=== PATIENT | female | born 1970 | race Caucasian/White ===

== ENCOUNTER → 2016-12-04 | Outpatient (CLI) | payer BC, OTHER ==
--- NOTE | 2016-12-05 08:50 | MM ---
Reason for exam: screening (asymptomatic). Last mammogram was performed 1 year and 1 month ago. History: Patient had first child at age 33. Family history of breast cancer in maternal aunt. Benign excisional biopsy of the right breast, 2007. Took hormonal contraceptives for 3 months beginning at age 37. Physical Findings: A clinical breast exam by your physician is recommended on an annual basis and results should be correlated with mammographic findings. MG 3D Screening Mammo W/Cad Bilateral CC and MLO view(s) were taken. Prior study comparison: November 17, 2015, bilateral MG 3d screening mammo w/cad. November 16, 2014, bilateral MG screening mammo w CAD. The breast tissue is heterogeneously dense. This may lower the sensitivity of mammography. There is no discrete abnormality. No significant changes when compared with prior studies. ASSESSMENT: Negative, BI-RAD 1 RECOMMENDATION: Routine screening mammogram of both breasts in 1 year.
== END | disposition home or self-care (01) ==
LOC: RADMAMWWP 14:26
PROVIDERS: ATTEND Obstetrics & Gynecology
DX: Z12.31 Encounter for screening mammogram for malignant neoplasm of breast (principal); Z80.3 Family history of malignant neoplasm of breast
CPT/HCPCS: 77063; G0202

== ENCOUNTER → 2016-12-19 | Outpatient (CLI) | payer OTHER | LOC: LABWHC1 06:42 | PROVIDERS: ATTEND Obstetrics & Gynecology | DX: E03.9 Hypothyroidism, unspecified (principal); E78.5 Hyperlipidemia, unspecified | CPT/HCPCS: 36415; 80061; 82947; 84439; 84443; 84479 ==

== ENCOUNTER → 2018-03-04 | Outpatient (CLI) | payer BC, OTHER ==
--- NOTE | 2018-03-05 14:11 | MM ---
Reason for exam: screening (asymptomatic). Last mammogram was performed 1 year and 3 months ago. History: Patient had first child at age 33. Family history of breast cancer in maternal aunt. Benign excisional biopsy of the right breast, 2007. Took hormonal contraceptives for 3 months beginning at age 37. Physical Findings: A clinical breast exam by your physician is recommended on an annual basis and results should be correlated with mammographic findings. MG 3D Screening Mammo W/Cad Bilateral CC and MLO view(s) were taken. Prior study comparison: December 04, 2016, bilateral MG 3d screening mammo w/cad. November 17, 2015, bilateral MG 3d screening mammo w/cad. The breast tissue is heterogeneously dense. This may lower the sensitivity of mammography. There is no discrete abnormality. ASSESSMENT: Negative, BI-RAD 1 RECOMMENDATION: Routine screening mammogram of both breasts in 1 year.
== END | disposition home or self-care (01) ==
LOC: RADMAMWWP 14:14
PROVIDERS: ATTEND Obstetrics & Gynecology
DX: Z12.31 Encounter for screening mammogram for malignant neoplasm of breast (principal)
CPT/HCPCS: 77063; 77067

== ENCOUNTER → 2018-05-28 | Outpatient (CLI) | payer BC ==
[2018-05-28 07:43] LABS: HCT 38.7 % (34.0-46.0); HGB 12.8 gm/dL (11.4-16.0); MCH 31.6 pg (25.0-35.0); MCHC 33.2 g/dL (31.0-37.0); MCV 95.4 fL (80.0-100.0); Mean Platelet Volume 7.7; Platelet Count 255 k/uL (150-450); RBC 4.06 m/uL (3.80-5.40); RDW 12.8 % (11.5-15.5); WBC 5.7 k/uL (3.8-10.6)
[2018-05-28 08:19] LABS: T4, Free (Free Thyroxine) 0.79 ng/dL (0.78-2.19)
== END ==
LOC: LABWHC1 07:07
PROVIDERS: ATTEND Obstetrics & Gynecology
DX: Z13.220 Encounter for screening for lipoid disorders (principal); Z13.29 Encounter for screening for other suspected endocrine disorder
CPT/HCPCS: 36415; 80061; 82947; 84439; 84443; 84479; 85027

== ENCOUNTER → 2019-03-17 | Outpatient (CLI) | payer BC ==
--- NOTE | 2019-03-18 11:30 | MM ---
Reason for exam: screening (asymptomatic). Last mammogram was performed 1 year ago. History: Patient is postmenopausal and had first child at age 33. Family history of breast cancer in maternal aunt. Benign excisional biopsy of the right breast, 2007. Took hormonal contraceptives for 3 months beginning at age 37. Physical Findings: A clinical breast exam by your physician is recommended on an annual basis and results should be correlated with mammographic findings. MG 3D Screening Mammo W/Cad Bilateral CC and MLO view(s) were taken. Prior study comparison: March 04, 2018, bilateral MG 3d screening mammo w/cad. December 04, 2016, bilateral MG 3d screening mammo w/cad. The breast tissue is heterogeneously dense. This may lower the sensitivity of mammography. There is no discrete abnormality. ASSESSMENT: Negative, BI-RAD 1 RECOMMENDATION: Routine screening mammogram of both breasts in 1 year.
== END | disposition home or self-care (01) ==
LOC: RADMAMWWP 13:48
PROVIDERS: ATTEND Obstetrics & Gynecology
DX: Z12.31 Encounter for screening mammogram for malignant neoplasm of breast (principal); Z80.3 Family history of malignant neoplasm of breast
CPT/HCPCS: 77063; 77067

== ENCOUNTER → 2020-03-29 | Outpatient (CLI) | payer SELFPAY ==
--- NOTE | 2020-03-30 10:11 | MM ---
Reason for exam: screening (asymptomatic). Last mammogram was performed 1 year ago. History: Patient is postmenopausal and had first child at age 33. Family history of breast cancer in maternal aunt. Benign excisional biopsy of the right breast, 2007. Took hormonal contraceptives for 3 months beginning at age 37. Physical Findings: A clinical breast exam by your physician is recommended on an annual basis and results should be correlated with mammographic findings. MG 3D Screening Mammo W/Cad Bilateral CC and MLO view(s) were taken. Prior study comparison: March 17, 2019, bilateral MG 3d screening mammo w/cad. March 04, 2018, bilateral MG 3d screening mammo w/cad. The breast tissue is heterogeneously dense. This may lower the sensitivity of mammography. Benign appearing calcifications in the right breast. No significant changes when compared with prior studies. ASSESSMENT: Benign, BI-RAD 2 RECOMMENDATION: Routine screening mammogram of both breasts in 1 year.
== END | disposition home or self-care (01) ==
LOC: RADMAMWWP 12:13
PROVIDERS: ATTEND Obstetrics & Gynecology
DX: Z12.31 Encounter for screening mammogram for malignant neoplasm of breast (principal)
CPT/HCPCS: 77063; 77067

== ENCOUNTER → 2020-04-25 | Outpatient (CLI) | payer OTHER ==
[2020-04-25 15:53] LABS: HCT 43.6 % (34.0-46.0); HGB 14.1 gm/dL (11.4-16.0); MCH 31.7 pg (25.0-35.0); MCHC 32.2 g/dL (31.0-37.0); MCV 98.6 fL (80.0-100.0); Mean Platelet Volume 9.5; Platelet Count 278 k/uL (150-450); RBC 4.43 m/uL (3.80-5.40); WBC 6.6 k/uL (3.8-10.6)
[2020-04-25 23:53] LABS: African American GFR (CKD) 117.1 (60.0-200.0); Albumin 4.5 g/dL (3.80-4.90); Albumin/Globulin Ratio 1.88 (1.60-3.17); Anion Gap 10.6 mmol/L (4.00-12.00); BUN/Creat Ratio 12.86 Ratio (12.00-20.00); Calcium 9.7 mg/dL (8.7-10.3); Carbon Dioxide 24.4 mmol/L (21.6-31.8); Chol/HDL Ratio 2.98; Globulin 2.4 g/dL (1.6-3.3); Potassium 4.2 mmol/L (3.5-5.5); Total Bilirubin 0.5 mg/dL (0.2-1.2); Total Protein 6.9 g/dL (6.2-8.2)
== END | disposition home or self-care (01) ==
LOC: LABWHC1 14:14
PROVIDERS: ATTEND Obstetrics & Gynecology
DX: Z13.220 Encounter for screening for lipoid disorders (principal); Z13.29 Encounter for screening for other suspected endocrine disorder; R53.83 Other fatigue
CPT/HCPCS: 36415; 80053; 80061; 84439; 84443; 85027

== ENCOUNTER → 2020-05-19 | Outpatient (CLI) | payer SELFPAY ==
--- NOTE | 2020-05-20 07:53 | US ---
EXAMINATION TYPE: US thyroid st tissue head/neck DATE OF EXAM: 05/19/2020 COMPARISON: US 2016 CLINICAL HISTORY: E04.1 THYROID NODULE. Thyroid nodules, history of thyroid FNA GLAND SIZE: Right Lobe: 4.4 x 1.8 x 1.9 cm Overall Parenchyma: homogenous Left Lobe: 4.0 x 1.4 x 1.1 cm Overall Parenchyma: homogeneous Isthmus Thickness: 0.2 cm NODULES RIGHT: # of nodules measured on right: 3 1. 2.6 X 1.5 x 1.9 cm hypoechoic mixed nodule at the mid pole with well-defined margins. This nodul e is wider than tall and shows intranodular vascularity. Prior size: 2.2 x 1.3 x 1.6 cm 2. 0.8 X 0.4 x 0.6 cm hypoechoic mixed nodule at the mid upper pole with well-defined margins. This nodule is wider than tall and shows intranodular vascularity. Prior size: 0.7 x 0.4 x 0.6 cm 3. 0.6 X 0.4 x 0.9 cm hyperechoic solid nodule at the lower pole with well-defined margins. This nod ule is wider than tall and shows no intranodular vascularity. Prior size: no previous LEFT: # of nodules measured on left: 2 1. 0.7 X 0.6 x 0.5 cm hypoechoic solid nodule at the medial upper pole with well-defined margins. T his nodule is wider than tall and shows intranodular vascularity. Prior size: 0.7 x 0.5 x 0.7 cm 2. 0.5 X 0.4 x 0.5 cm hypoechoic mixed nodule at the lateral lower pole with well-defined margins. T his nodule is wider than tall and shows intranodular vascularity. Prior size: 1.1 x 0.6 x 0.5 cm ISTHMUS: # of nodules measured in the isthmus: 1 1. 1.3 X 0.5 x 1.2 cm hypoechoic solid nodule at the isthmus with well-defined margins. This nodule is wider than tall and shows intranodular vascularity. Prior size: 1.4 x 0.5 x 1.2 cm Bilateral neck scanned, no evidence of lymphadenopathy. IMPRESSION: Mildly suspicious dominant nodule right lobe of the gland, consider FNA, TR3.
== END | disposition home or self-care (01) ==
LOC: RADUSWWP 15:31
PROVIDERS: ATTEND Obstetrics & Gynecology
DX: E04.1 Nontoxic single thyroid nodule (principal)
CPT/HCPCS: 76536

== ENCOUNTER → 2020-06-13 | Outpatient (CLI) | payer OTHER ==
--- NOTE | 2020-06-13 11:59 | BD ---
EXAMINATION TYPE: Axial Bone Density DATE OF EXAM: 06/13/2020 COMPARISON: NONE CLINICAL HISTORY: Osteoporosis Height: 67 IN Weight: 190 LBS RISK FACTORS HISTORY OF: Family History of Osteoporosis: YES GRANDMOTHER (P) Active: YES Postmenopausal woman: AGE 44 MEDICATIONS: Additional Medications: NONE EXAM MEASUREMENTS: Bone mineral densitometry was performed using the [employer] System. Bone mineral density as measured about the Lumbar spine is: ----- L1-L4(G/cm2): 1.052 T Score Values are as follows: ----- L2: -1.3 ----- L3: -0.9 ----- L4: -0.8 ----- L1-L4: -1.1 Bone mineral density BASELINE Bone mineral density about the R hip (g/cm2): 0.946 Bone mineral density about the L hip (g/cm2): 0.939 T Score values are as follows: -----R Neck: -0.7 -----L Neck: -0.7 -----R Total: 0.1 -----L Total: 0.0 Bone mineral density BASELINE IMPRESSION: Osteopenia (T Score between -2.5 and -1). There is slightly increased risk of fracture and the patient may be considered for treatment. Re-Screen 2-5 years. NOTE: T-SCORE=SD OF THE YOUNG ADULT MEAN.
== END | disposition home or self-care (01) ==
LOC: RADBDWWP 07:18
PROVIDERS: ATTEND Obstetrics & Gynecology
DX: M85.80 Other specified disorders of bone density and structure, unspecified site (principal)
CPT/HCPCS: 77080

== ENCOUNTER → 2021-04-26 | Outpatient (CLI) | payer OTHER ==
[2021-04-26 15:19] LABS: HCT 44.6 % (37.2-46.3); MCH 31.3 pg (27.0-32.0); MCHC 31.4 g/dL (32.0-37.0); MCV 99.8 fL (80.0-97.0); Mean Platelet Volume 10.9 fL (9.5-12.2); Platelet Count 294 X 10*3/uL (140-440); RBC 4.47 X 10*6/uL (4.10-5.20); RDW 12.9 % (11.5-14.5); WBC 6.04 X 10*3/uL (4.50-10.00)
[2021-04-26 18:45] LABS: African American GFR (CKD) 98.9 (60.0-200.0); Albumin 4.6 g/dL (3.80-4.90); Albumin/Globulin Ratio 1.84 (1.60-3.17); Anion Gap 11.9 mmol/L (4.00-12.00); BUN/Creat Ratio 16.25 Ratio (12.00-20.00); Calcium 9.5 mg/dL (8.7-10.3); Carbon Dioxide 23.1 mmol/L (21.6-31.8); Chol/HDL Ratio 3.1; Globulin 2.5 g/dL (1.6-3.3); LDL Cholesterol,Calculated 98.6 mg/dL (0.0-131.0); Non-African American GFR(CKD) 85.4 (60.0-200.0); Potassium 4.6 mmol/L (3.5-5.5); Total Bilirubin 0.4 mg/dL (0.3-1.2); Total Protein 7.1 g/dL (6.2-8.2); VLDL Calculation 27.4 mg/dL (5.00-40.00)
== END | disposition home or self-care (01) ==
LOC: LABWHC1 06:58
PROVIDERS: ATTEND Obstetrics & Gynecology
DX: Z13.220 Encounter for screening for lipoid disorders (principal)
CPT/HCPCS: 36415; 80053; 80061; 85027

== ENCOUNTER → 2021-05-31 | Outpatient (CLI) | payer OTHER ==
--- NOTE | 2021-06-01 12:33 | MM ---
Reason for exam: screening (asymptomatic). Last mammogram was performed 1 year and 2 months ago. History: Patient is postmenopausal and had first child at age 33. Family history of breast cancer in maternal aunt. Benign excisional biopsy of the right breast, 2007. Took hormonal contraceptives for 3 months beginning at age 37. Physical Findings: A clinical breast exam by your physician is recommended on an annual basis and results should be correlated with mammographic findings. MG 3D Screening Mammo W/Cad Bilateral CC and MLO view(s) were taken. Prior study comparison: March 29, 2020, bilateral MG 3d screening mammo w/cad. March 17, 2019, bilateral MG 3d screening mammo w/cad. March 04, 2018, bilateral MG 3d screening mammo w/cad. The breast tissue is heterogeneously dense. This may lower the sensitivity of mammography. Finding: There is an intermediate concern, suspicious 6 mm high density, oval mass in the subareolar position of the left breast. New finding since March 29, 2020, March 17, 2019, and March 04, 2018. ASSESSMENT: Incomplete: need additional imaging evaluation, BI-RAD 0 RECOMMENDATION: Ultrasound of the left breast. [facility] will attempt to contact patient to return for ultrasound.
== END | disposition home or self-care (01) ==
LOC: RADMAMWWP 15:20
PROVIDERS: ATTEND Obstetrics & Gynecology
DX: Z12.31 Encounter for screening mammogram for malignant neoplasm of breast (principal)
CPT/HCPCS: 77063; 77067

== ENCOUNTER → 2021-06-06 | Outpatient (CLI) | payer OTHER ==
--- NOTE | 2021-06-06 11:12 | USB ---
Reason for exam: additional evaluation requested from abnormal screening. History: Patient is postmenopausal and had first child at age 33. Family history of breast cancer in maternal aunt. Benign excisional biopsy of the right breast, 2007. Took hormonal contraceptives for 3 months beginning at age 37. Physical Findings: Nurse did not find any significant physical abnormalities on exam. US Breast Workup Limited LT Left limited breast ultrasound including focal area of concern, retroareolar and axilla demonstrates a 5 x 3 x 6mm oval, likely cystic lesion at 6 o'clock. Mammographic correlate. 6 month follow up recommended. Subareolar and periareolar region scanned. These results were verbally communicated with the patient and result sheet given to the patient on 06/06/21. ASSESSMENT: Probably benign, BI-RAD 3 RECOMMENDATION: Follow-up diagnostic mammogram of the left breast in 6 months.
== END | disposition home or self-care (01) ==
LOC: RADUSWWP 10:32
PROVIDERS: ATTEND Obstetrics & Gynecology
DX: R92.8 Other abnormal and inconclusive findings on diagnostic imaging of breast (principal); Z80.3 Family history of malignant neoplasm of breast

== ENCOUNTER → 2021-12-29 | Outpatient (CLI) | payer BC ==
--- NOTE | 2021-12-29 15:56 | US ---
EXAMINATION TYPE: US thyroid st tissue head/neck DATE OF EXAM: 12/29/2021 COMPARISON: US dated 05/19/2020 CLINICAL HISTORY: E04.1 Thyroid nodule. GLAND SIZE: Right Lobe: 4.7 x 1.8 x 1.8 cm Overall Parenchyma: homogenous Left Lobe: 4.0 x 1.7 x 1.4 cm Overall Parenchyma: homogeneous Isthmus Thickness: 0.3 cm NODULES RIGHT: # of nodules measured on right: 3 1. 2.5 X 1.4 x 1.8 cm, mid lateral, solid or almost completely solid, hypoechoic nodule, which is w ider than tall, with smooth margins, with echogenic foci. TR 4 Prior size: 2.6 x 1.5 x 1.9 cm 2. 0.7 X 0.4 x 0.7 cm, mid mid, mixed cystic and solid, hypoechoic nodule, which is wider than tall , with smooth margins, without echogenic foci. Prior size: 0.8 x 0.4 x 0.6 cm 3. 0.6 X 0.5 x 0.6 cm, lower mid, solid or almost completely solid, isoechoic nodule, which is wide r than tall, with smooth margins, without echogenic foci. Prior size: 0.6 x 0.4 x 0.9 cm This could represent normal tissue. LEFT: # of nodules measured on left: 2 1. 0.7 X 0.3 x 0.4 cm, mid mid, solid or almost completely solid, hypoechoic nodule, which is wider than tall, with smooth margins, without echogenic foci. Prior size: 0.7 x 0.6 x 0.6 cm 2. 0.5 X 0.5 x 0.5 cm, lower mid, solid or almost completely solid, hypoechoic nodule, which is wi tanisha than tall, with smooth margins, without echogenic foci. Prior size: 0.5 x 0.4 x 0.5 cm ISTHMUS: # of nodules measured in the isthmus: 1 1. 1.4 X 0.5 x 1.1 cm solid or almost completely solid, hypoechoic nodule, which is wider than tall , with smooth margins, without echogenic foci. Prior size: 1.3 x 0.5 x 1.2 cm Bilateral neck scanned, no evidence of lymphadenopathy. Stable thyroid nodules. IMPRESSION: 1. There is a moderately suspicious nodule within the right lobe thyroid. Fine-needle aspiration is r ecommended. 2017 ACR TI-RADS LEVEL: TR-RADS 4 - Moderately Suspicious: Follow if > 1 cm, FNA if > 1.5 cm *Highest TI-RADS level nodule reported
== END | disposition home or self-care (01) ==
LOC: RADUSWWP 15:16
PROVIDERS: ATTEND Otolaryngology
DX: E04.1 Nontoxic single thyroid nodule (principal)
CPT/HCPCS: 76536

== ENCOUNTER → 2023-02-11 | Outpatient (CLI) | payer BC ==
--- NOTE | 2023-02-12 06:57 | US ---
EXAMINATION TYPE: US thyroid st tissue head/neck DATE OF EXAM: 02/11/2023 COMPARISON: NONE CLINICAL INDICATION: Female, 52 years old with history of E04.1 THYROID NODULE; f/u exam GLAND SIZE: Right Lobe: 5.1 x 2.0 x 2.8 cm Overall Parenchyma: heterogenous Left Lobe: 4.4 x 1.2 x 1.5 cm Overall Parenchyma: heterogenous Isthmus Thickness: 0.3 cm NODULES RIGHT: # of nodules measured on right: 3 1. 2.7 X 1.9 x 1.5 cm, mid , solid or almost completely solid, hypoechoic TR 4 nodule, which is wid er than tall, with smooth margins, without echogenic foci. Prior size: 2.5 x 1.8 x 1.4 cm 2. 0.8 X 0.8 x 0.5 cm, mid , benign cyst. Prior size: 0.7 x 0.4 x 0.7 cm 3. 0.6 X 0.6 x 0.5 cm, lower , solid or almost completely solid, hyperechoic TR 3 nodule, which is taller than wide, with smooth margins, without echogenic foci. Prior size: 0.6 x 0.5 x 0.6 cm LEFT: # of nodules measured on left: 1 1. 1.1 X 0.8 x 0.7 cm, mid , solid or almost completely solid, hypoechoic TR 4 nodule, which is wide r than tall, with smooth margins, without echogenic foci. Prior size: 0.7 x 0.3 x 0.4 cm ISTHMUS: # of nodules measured in the isthmus: 1 1. 1.4 X 0.6 x 1.3 cm solid or almost completely solid, hypoechoic TR 4 nodule, which is wider than tall, with smooth margins, without echogenic foci. Prior size: 1.4 x 0.5 x 1.1 cm Bilateral neck scanned, no evidence of lymphadenopathy. IMPRESSION: 1. Consider multinodular goiter. The dominant TR4 nodule at the right midpole is slightly larger at 2 .7 x 1.9 cm versus 2.5 x 1.8 cm, previously. FNA can be considered if not previously performed. 2. A solid TR4 nodule on the left is larger as well measuring 1.1 cm versus 7 mm, previously. Follow- up recommended. FNA if it reaches 1.5 cm. 3. The TR4 nodule at the isthmus of the thyroid gland measures 1.4 cm and is unchanged. This can also be followed.
== END | disposition home or self-care (01) ==
LOC: RADUSWWP 16:07
PROVIDERS: ATTEND Otolaryngology
DX: E04.2 Nontoxic multinodular goiter (principal)
CPT/HCPCS: 76536

== ENCOUNTER → 2023-06-19 | Outpatient (CLI) | payer BC ==
--- NOTE | 2023-06-19 10:39 | BD ---
EXAMINATION TYPE: Axial Bone Density DATE OF EXAM: 06/19/2023 CLINICAL HISTORY: 53 years old Female. ICD-10 CODE: M85.88 DISORDER OF BONE DENSITY Height: 67 in Weight: 178 lbs RISK FACTORS HISTORY OF: Active: yes Postmenopausal woman: age 44 MEDICATIONS: Additional Medications: none EXAM MEASUREMENTS: Bone mineral densitometry was performed using the [employer] System. Bone mineral density as measured about the Lumbar spine is: ----- L1-L4(G/cm2): 1.106 T Score Values are as follows: ----- L1: -1.0 ----- L2: -1.4 ----- L3: -0.5 ----- L4: 0.0 ----- L1-L4: -0.6 Z Score Values are as follows: ----- L1: -0.8 ----- L2: -1.2 ----- L3: -0.3 ----- L4: 0.2 ----- L1-L4: -0.4 Bone mineral density has: Increased 5.1% since study of: 06/13/2020 Bone mineral density about the R hip (g/cm2): 0.962 Bone mineral density about the L hip (g/cm2): 0.966 T Score values are as follows: -----R Neck: -0.8 -----L Neck: -0.8 -----R Total: -0.4 -----L Total: -0.3 Z Score values are as follows: -----R Neck: -0.2 -----L Neck: -0.1 -----R Total: -0.1 -----L Total: -0.1 Bone mineral density has: Decreased -4.9% since study of: 06/13/2020 FRAX%s: The graph provided illustrates a 5.2% chance for a major osteoporotic fx and a 0.2% chance fo r the hips probability for fx in 10 years time. IMPRESSION: Normal (Values between +1 and -1 indicate normal bone mass). Consider repeating this study in 5 year s or sooner if there is some new clinical indication. NOTE: T-SCORE=SD OF THE YOUNG ADULT MEAN.
== END | disposition home or self-care (01) ==
LOC: RADBDWWP 09:10
PROVIDERS: ATTEND Obstetrics & Gynecology
DX: M85.88 Other specified disorders of bone density and structure, other site (principal); Z78.0 Asymptomatic menopausal state
CPT/HCPCS: 77080

== ENCOUNTER → 2023-06-19 | Outpatient (CLI) | payer BC ==
--- NOTE | 2023-06-20 11:00 | MM ---
Reason for Exam: Screening (asymptomatic). Last mammogram was performed 2 year(s) and 1 month(s) ago. Patient History: Menarche at age 12. First Full-Term at age 33. Late child-bearing (after 30). Postmenopausal. Hormonal Contraceptives for 3 months starting at age 37. 2008, Benign Excisional Biopsy on the right side. Maternal aunt had breast cancer. Risk Values: Cindy 5 year model risk: 1.9%. NCI Lifetime model risk: 13.3%. Prior Study Comparison: 03/29/2020 Bilateral Screening Mammogram, [facility]. 05/31/2021 Bilateral Screening Mammogram, [facility]. 12/13/2021 Left Diagnostic Mammogram, [facility]. Tissue Density: The breast tissue is heterogeneously dense. This may lower the sensitivity of mammography. Findings: Analyzed By CAD. There is no suspicious group of microcalcifications or new suspicious mass in either breast. Overall Assessment: Benign, BI-RAD 2 Management: Screening Mammogram of both breasts in 1 year. . Patient should continue monthly self-breast exams. A clinical breast exam by your physician is recommended on an annual basis. This exam should not preclude additional follow-up of suspicious palpable abnormalities. Note on Cindy scores and lifetime risk: 1. A Cindy score greater than 3% is considered moderate risk. If this is the case, consider specialist referral to assess eligibility for a risk reducing agent. 2. If overall lifetime risk for the development of breast cancer is 20% or higher, the patient may qualify for future screening with alternating mammogram and breast MRI. Electronically signed and approved by: Kartik Ramsey M.D. Radiologis
== END | disposition home or self-care (01) ==
LOC: RADMAMWWP 09:44
PROVIDERS: ATTEND Obstetrics & Gynecology
DX: Z12.31 Encounter for screening mammogram for malignant neoplasm of breast (principal); Z78.0 Asymptomatic menopausal state; Z80.3 Family history of malignant neoplasm of breast
CPT/HCPCS: 77063; 77067

== ENCOUNTER → 2024-05-14 | Outpatient (CLI) | payer BC ==
--- NOTE | 2024-05-15 19:15 | US ---
EXAMINATION TYPE: US thyroid st tissue head/neck DATE OF EXAM: 05/14/2024 COMPARISON: 02/11/23 CLINICAL INDICATION: Female, 53 years old with history of E04.1 THYROID NODULE; follow up on nodules GLAND SIZE: Right Lobe: 4.6 x 1.4 x 1.8 cm Overall Parenchyma: homogeneous Left Lobe: 4.1 x 1.1 x 1.2 cm Overall Parenchyma: homogeneous Isthmus Thickness: 0.21 cm NODULES RIGHT: # of nodules measured on right: 3 1. 2.9 X 1.8 x 1.5 cm, mid mid, solid or almost completely solid, hypoechoic TR 4 nodule, which is wider than tall, with lobulated or irregular margins, without echogenic foci. Prior size: 2.7 x 1.9 x 1.5 cm 2. 0.8 X 0.8 x 0.5 cm, mid mid, cystic or almost completely cystic, benign colloid cyst. Prior size: 0.8 x 0.8 x 0.5 cm 3. 0.6 X 0.5 x 0.6 cm, lower mid, solid or almost completely solid, hyperechoic TR 3 nodule, which is wider than tall, with lobulated or irregular margins, echogenic foci. Prior size: 0.6 x 0.5 x 0.6 cm LEFT: # of nodules measured on left: 1 1. 1.1 X 0.7 x 0.5 cm, mid medial, solid or almost completely solid, hypoechoic TR 4 nodule, which is wider than tall, with ill-defined margins, without echogenic foci. Prior size: 1.1 x 0.8 x 0.7 cm ISTHMUS: # of nodules measured in the isthmus: 1 1. 1.4 X 1.2 x 0.7 cm solid or almost completely solid, hypoechoic TR 4 nodule, which is wider than tall, with smooth margins, without echogenic foci. Prior size: 1.4 x 1.3 x 0.6 cm Bilateral neck scanned, no evidence of lymphadenopathy. IMPRESSION: Correlate for multinodular goiter. A solid TR4 nodule on the right is minimally larger at 2.9 cm vers us 2.7 cm, previously. Other nodules are largely unchanged. 2017 ACR TI-RADS LEVEL: TR-RADS 4 - Moderately Suspicious: Follow if > 1 cm, FNA if > 1.5 cm *Highest TI-RADS level nodule reported
--- NOTE | 2024-05-17 11:49 | MM ---
Reason for Exam: Screening (asymptomatic). Last screening mammogram was performed 11 month(s) ago. Patient History: Menarche at age 12. First Full-Term at age 33. Late child-bearing (after 30). Postmenopausal. Hormonal Contraceptives for 3 months starting at age 37. 2008, Benign Excisional Biopsy on the right side. Maternal aunt had breast cancer. Risk Values: Cindy 5 year model risk: 1.9%. NCI Lifetime model risk: 13.3%. Prior Study Comparison: 05/31/2021 Bilateral Screening Mammogram, [facility]. 12/13/2021 Left Diagnostic Mammogram, [facility]. 06/19/2023 Bilateral MG 3D screening mammo w/cad, [facility]. Tissue Density: The breasts are heterogeneously dense, which may obscure small masses. Findings: Analyzed By CAD. Right breast: There is no suspicious group of microcalcifications or new suspicious mass. Left breast: There is no suspicious group of microcalcifications or new suspicious mass. Overall Assessment: Negative, BI-RAD 1 Management: Screening Mammogram of both breasts in [address] [facility] will attempt to contact patient to return for supplemental views and ultrasound if indicated. Patient should continue monthly self-breast exams. A clinical breast exam by your physician is recommended on an annual basis. This exam should not preclude additional follow-up of suspicious palpable abnormalities. Note on Cindy scores and lifetime risk: 1. A Cindy score greater than 3% is considered moderate risk. If this is the case, consider specialist referral to assess eligibility for a risk reducing agent. 2. If overall lifetime risk for the development of breast cancer is 20% or higher, the patient may qualify for future screening with alternating mammogram and breast MRI. Electronically signed and approved by: Carlos A White DO
== END | disposition home or self-care (01) ==
LOC: RADUSWWP 15:59
PROVIDERS: ATTEND Internal Medicine Gastroenterology
DX: Z12.31 Encounter for screening mammogram for malignant neoplasm of breast (principal); R92.333 Mammographic heterogeneous density, bilateral breasts; E04.2 Nontoxic multinodular goiter; Z78.0 Asymptomatic menopausal state; Z80.3 Family history of malignant neoplasm of breast
CPT/HCPCS: 76536; 77063; 77067

== ENCOUNTER 2024-12-21 12:52 | Day surgery (SDC) | payer BC, MEDICAID ==
[2024-12-21 15:10] VITALS: BP 119/82; PULSE 84; RESP 16; TEMP 98
--- NOTE | 2024-12-22 06:47 | US ---
EXAMINATION TYPE: US FNA thyroid first lesion DATE OF EXAM: 12/21/2024 2:55 PM CLINICAL INDICATION:Female, 54 years old with history of E04.2 NONTOXIC MULTINODULAR GOITER; TR4, thy roid nodule. Slow-growing nodule with benign biopsy 12 years ago. COMPARISON: Prior thyroid ultrasound May 14, 2024 and older studies. ATTENDING: Dr. Farrell PROCEDURE: Informed consent was obtained. The risks and benefits of the procedure were discussed with the patien t. The site was marked. Timeout procedure was performed Ultrasound imaging redemonstrates 2.7 cm predominantly solid slightly hypoechoic wider greater than t all nodule in the right thyroid lobe. The patient was prepped, draped in the usual sterile fashion, and locally anesthetized with 1% lidoca ine. Five fine needle aspiration were then performed with a 25 gauge needle. Samples were sent to [facility] pathology department for further analysis. Patient tolerated the procedure without incident and wa s sent home in stable condition. IMPRESSION: Successful ultrasound guided fine needle aspiration. Low to intermediate index of suspicion noted at time of procedure. [facility], , 12/22/2024 6:44 AM
== END 2024-12-21 14:55 | disposition home or self-care (01) ==
LOC: RADPROMAIN 12:52
PROVIDERS: ATTEND Family Medicine
DX: E04.1 Nontoxic single thyroid nodule (principal)
CPT/HCPCS: 10005; 88173; 88305

== ENCOUNTER 2025-02-26 06:13 | Day surgery (SDC) | payer MEDICAID ==
[2025-02-24 14:26] VITALS: BMI 25.8
[2025-02-26 06:40] VITALS: TEMP 97
[2025-02-26] MEDS: IV FLUID CONTINUATION 1,000 ML IV ONE ×2 (06:40→06:59)
[2025-02-26] MEDS: LACTATED RINGERS 1,000 ML IV SCH (06:41)
[2025-02-26] MEDS ORDERED: PROPOFOL 10 MG/ML 20 ML VIAL IV ONE (07:00)
[2025-02-26] MEDS ORDERED: LIDOCAINE 1% INJ 10MG/ML (20 ML MDV) ONE (07:00)
--- NOTE | 2025-02-26 07:25 | P.PCN ---
Date of Procedure: 02/26/25 Procedure(s) Performed: Brief history: Patient is a pleasant 54-year-old white female scheduled for an elective upper endoscopy as well as colonoscopy as a part of evaluation of GERD and screening for colon cancer. Her last colonoscopy was 11 years ago. Procedure performed: Esophagogastroduodenoscopy Colonoscopy Preoperative diagnosis: GERD Screening for colon cancer Anesthesia: [facility] [place] Procedure: After informed consent was obtained from the patient was brought into the endoscopy unit and IV sedation was administered by anesthesia under continuous monitoring. Initially upper endoscopy was done. The Olympus GF 160 video endoscope was inserted inserted into the mouth and esophagus intubated without any difficulty and was gradually advanced into the stomach and duodenum and carefully examined. The bulb and second part of the duodenum appeared normal. The scope was then withdrawn into the stomach adequately insufflated with air and upon careful examination the antrum and body, cardia and fundus appeared normal. The scope was then withdrawn into the esophagus. Small hiatal hernia noted. The GE junction was located at 38 cm to the incisors. It appeared regular with 1 superficial erosion consistent with LA grade a reflux esophagitis. Rest of the esophagus appeared normal. Patient tolerated the procedure well. At this time the patient continued to remain sedation. Initial digital rectal examination was normal. Olympus CF 160 video colonoscope was then inserted into the rectum and gradually advanced to the cecum without any difficulty. Careful examination was performed as the scope was gradually being withdrawn. The prep was good.. The cecum, ascending colon, transverse colon, descending colon, sigmoid colon and rectum appeared normal. Retroflexion was performed in the rectum and no lesions were noted. Patient tolerated the procedure well. Impression: 1. Upper endoscopy revealed small hiatal hernia and LA grade A reflux esophagitis 2. Colonoscopy was within normal limits with no recent colorectal neoplasia Recommendations: Findings of this examination were discussed with the patient as well as her family. She was advised to use [id number] H2 blockers as needed. Recommend repeat screening colonoscopy in 10 years.
[2025-02-26 07:48] VITALS: BP 107/72; PULSE 64; RESP 16
== END 2025-02-26 08:09 ==
LOC: ORWHC2ENDO 06:13
PROVIDERS: ATTEND Internal Medicine Gastroenterology
DX: Z12.11 Encounter for screening for malignant neoplasm of colon (principal); K21.00 Gastro-esophageal reflux disease with esophagitis, without bleeding; K44.9 Diaphragmatic hernia without obstruction or gangrene; E04.1 Nontoxic single thyroid nodule
CPT/HCPCS: 45378; 43235; J2003; J2704